=== PATIENT | female | born 1980 | race African-American/Black ===

== ENCOUNTER 2022-04-03 10:43 | Observation (INO) ==
[2022-04-03] MEDS ORDERED: ONDANSETRON 4 MG/2 ML VIAL IV PRN (10:55)
[2022-04-03] MEDS ORDERED: LACTATED RINGERS 1,000 ML IV SCH (11:00)
[2022-04-03] MEDS ORDERED: LIDOCAINE 2% 5 ML VIAL ONE (13:13)
[2022-04-03] MEDS ORDERED: propofoL 200 MG/20 ML VIAL IV ONE ×2 (13:13→13:20)
[2022-04-03] MEDS ORDERED: ONDANSETRON 4 MG/2 ML VIAL ONE (13:13)
[2022-04-03] MEDS ORDERED: LEVALBUTEROL 1.25 MG/3 ML NEB RESP TX ONE ×2 (13:44→13:51)
[2022-04-03] MEDS ORDERED: DEXAMETHASONE 4 MG/1 ML VIAL ONE (13:48)
[2022-04-03] MEDS ORDERED: DEXAMETHASONE 4 MG/1 ML VIAL IV ONE (13:50)
[2022-04-03] MEDS ORDERED: MEPERIDINE 50 MG/1 ML VIAL IV ONE (14:25)
[2022-04-03] MEDS ORDERED: MEPERIDINE 50 MG/1 ML VIAL ONE (14:31)
[2022-04-03] MEDS ORDERED: ALBUTEROL/IPRATROPIUM 3 ML NEB RESP TX PRN (17:31)
[2022-04-03] MEDS ORDERED: cefTRIAXone 1,000 MG in SODIUM CHLORIDE 0.9% 100 ML IV SCH (18:00)
[2022-04-03] MEDS: PANTOPRAZOLE 40 MG VIAL IV SCH (18:12)
[2022-04-03 19:07] LABS: Basophils % 0.1 % (0.0-0.8); Hematocrit 36.7 VOL% (35.7-47.0); Immature Granulocytes % 0.4 %; Immature Granulocytes Absolute 0.06 #; Lymphocytes # 0.7 10*3/uL (1.4-4.0); Mean Corpuscular HGB Conc 32.7 GM/DL (32-36); Mean Corpuscular Volume 84.4 FL (87-102); Mean Platelet Volume 9.4 FL (9.6-12.0); Monocytes # 0.2 10*3/uL (0.11-0.8); Monocytes % 1.1 % (1.7-12.7); Neutrophils % 93.4 % (38.7-73.9); Platelet Count 454 T/CUMM (130-400); Red Blood Count 4.35 MC/CUMM (3.8-5.5); Red Cell Distribution Width 13.6 % (9.3-17.3); White Blood Count 14.3 T/CUMM (4-12)
[2022-04-03 19:21] LABS: Osmolality,Calculated 276.4 MOS/KG (273-304); Potassium 3.4 MMOL/L (3.5-5.1)
[2022-04-03] MEDS ORDERED: POTASSIUM CHLORIDE 20 MEQ TABLET PO ONE (19:59)
[2022-04-03 20:06] LABS: Lymphocytes 6 % (20-55); Metamyelocytes 1 %
[2022-04-03 20:07] LABS: Ovalocytes Slight; Platelet Estimate Increased
[2022-04-03 20:08] LABS: Total Cells Counted 100
[2022-04-03] MEDS: SODIUM CHLORIDE 0.9% 1,000 ML IV SCH (20:30)
[2022-04-03] MEDS: BENZONATATE 100 MG CAPSULE PO SCH (20:30)
[2022-04-03] MEDS ORDERED: ENOXAPARIN 40 MG/0.4 ML SYRINGE SUBCUT SCH (21:00)
[2022-04-03] MEDS: AMPICILLIN/SULBACTAM 1,500 MG in SODIUM CHLORIDE 0.9% 100 ML IV SCH (22:17)
[2022-04-04] MEDS: AMPICILLIN/SULBACTAM 1,500 MG in SODIUM CHLORIDE 0.9% 100 ML IV SCH ×3 (04:16→11:29)
[2022-04-04 05:10] LABS: Basophils % 0.1 % (0.0-0.8); Hematocrit 33.6 VOL% (35.7-47.0); Hemoglobin 10.9 GM/DL (12.0-16.0); Immature Granulocytes % 0.4 %; Immature Granulocytes Absolute 0.04 #; Lymphocytes # 1.1 10*3/uL (1.4-4.0); Lymphocytes % 10.5 % (21.3-54.2); Mean Corpuscular HGB Conc 32.4 GM/DL (32-36); Mean Corpuscular Volume 85.1 FL (87-102); Mean Platelet Volume 9.6 FL (9.6-12.0); Monocytes # 0.4 10*3/uL (0.11-0.8); Monocytes % 3.5 % (1.7-12.7); Neutrophils % 85.5 % (38.7-73.9); Platelet Count 409 T/CUMM (130-400); Red Blood Count 3.95 MC/CUMM (3.8-5.5); Red Cell Distribution Width 13.8 % (9.3-17.3); White Blood Count 10.3 T/CUMM (4-12)
[2022-04-04 05:21] LABS: Calcium 8.6 MG/DL (8.5-10.1); Osmolality,Calculated 280.3 MOS/KG (273-304); Potassium 3.6 MMOL/L (3.5-5.1)
[2022-04-04] MEDS: SODIUM CHLORIDE 0.9% 1,000 ML IV SCH (06:31)
[2022-04-04] MEDS ORDERED: LINACLOTIDE 145 MCG CAPSULE PO SCH (07:30)
[2022-04-04] MEDS: PANTOPRAZOLE 40 MG VIAL IV SCH (08:31)
[2022-04-04] MEDS: BENZONATATE 100 MG CAPSULE PO SCH (08:32)
[2022-04-04] MEDS ORDERED: AZITHROMYCIN 250 MG TABLET PO SCH (09:00)
[2022-04-04 10:33] VITALS: BP 118/76
[2022-04-04] MEDS ORDERED: PSYLLIUM POWDER 3.7 GM/PACK PO SCH (17:00)
[2022-04-04] MEDS ORDERED: LUBIPROSTONE 24 MCG CAPSULE PO SCH (17:00)
[2022-04-07 14:17] LABS: Mycoplasma pneumoniae Ab Inter SEE COMMENTS; Mycoplasma pneumoniae Ab, IgG Positive (Negative); Mycoplasma pneumoniae Ab, IgM Negative (Negative)
== END 2022-04-04 15:53 | disposition home health service (06) ==
LOC: N.GILAB 10:43 → N.2W 10:43
PROVIDERS: ADMIT Internal Medicine Gastroenterology; ATTEND Internal Medicine Gastroenterology